=== PATIENT | female | born 1985 | race Two or more races ===

== ENCOUNTER 2016-03-31 05:32 | Inpatient (IN) | payer SELFPAY ==
[~2016-03-31] VITALS: Ht 149.9 cm; Wt 65.3 kg
[2016-03-31] VITALS (7 sets, daily range): BP systolic 87–103; BP diastolic 54–67
[2016-03-31] MEDS ORDERED: IV RINGERS,LACTATED 1000ML 1,000 ML IV SCH (06:00)
[2016-03-31] MEDS ORDERED: CEFAZOLIN 2GM PREMIX 50 ML IV ONE (06:00)
[2016-03-31] MEDS ORDERED: PREN-6 PO (06:35)
[2016-03-31 07:13] LABS: HEMATOCRIT 33.8 % (36.0-47.0); HEMOGLOBIN 11.2 g/dL (12.0-15.5); RED BLOOD COUNT 3.74 x10^6/uL (3.50-5.40); RED CELL DISTRIBUTION WIDTH 13.8 % (11.5-14.5); WHITE BLOOD COUNT 9.9 x10^3/uL (4.0-11.0)
[2016-03-31] MEDS ORDERED: CITRIC ACID/SODIUM CITRATE 30 ML SOLUTION. PO ONE (07:15)
[2016-03-31] MEDS ORDERED: FENTANYL PF 100 MCG/2 ML VIAL. ONE (07:23)
[2016-03-31] MEDS ORDERED: ONDANSETRON PF 4 MG/2 ML VIAL. ONE (07:23)
[2016-03-31] MEDS ORDERED: FAMOTIDINE 20 MG/2 ML VIAL ONE (07:23)
[2016-03-31] MEDS ORDERED: OXYTOCIN 10 UNIT/ML VIAL. ONE (07:24)
[2016-03-31] MEDS ORDERED: MORPHINE PF 5 MG/10 ML VIAL. ONE (07:24)
[2016-03-31] MEDS: IV RINGERS,LACTATED 1000ML 1,000 ML IV SCH ×3 (07:36→21:56)
[2016-03-31] MEDS ORDERED: PHENYLEPHRINE in 0.9% NACL PF 1 MG/10 ML DISP.SYRIN. IV ONE (08:42)
[2016-03-31] MEDS ORDERED: OXYTOCIN 30 UNIT/500 ML PREMIX 500 ML IV PRN (09:15)
[2016-03-31] MEDS ORDERED: DIPHENHYDRAMINE ORAL ELIXIR 12.5 MG/5 ML. PO PRN (09:15)
[2016-03-31] MEDS ORDERED: 0.9 % SODIUM CHLORIDE 10 ML DISP.SYRIN. IV PRN (09:15)
[2016-03-31] MEDS ORDERED: ZOLPIDEM 5 MG TABLET. PO PRN (09:15)
[2016-03-31] MEDS ORDERED: MAG HYDROX/AL HYDROX/SIMETH 30 ML ORAL.SUSP PO PRN (09:15)
[2016-03-31] MEDS ORDERED: MAGNESIUM HYDROXIDE 2,400 MG/30 ML ORAL.SUSP. PO PRN (09:15)
[2016-03-31] MEDS ORDERED: MMR per PROTOCOL. MC PRN (09:15)
[2016-03-31] MEDS ORDERED: SIMETHICONE 80 MG TAB.CHEW PO PRN (09:15)
[2016-03-31] MEDS ORDERED: ONDANSETRON PF 4 MG/2 ML VIAL. IV PRN (09:15)
--- NOTE | 2016-03-31 09:17 | PDOC ---
BRIEF OPERATIVE NOTE Pre-Op Diagnosis TIUP RLTC/S Post-Op Diagnosis Same Procedure Performed RLTC/S Surgeon Lulu Anesthesia Type: Regional Blood Loss 600cc Findings Female 5lbs Complications None NITO CARMONA MD Mar 31, 2016 09:17
[2016-03-31] MEDS: KETOROLAC TROMETHAMINE 30 MG/ML SYRINGE. IV PRN (14:48)
[2016-03-31] MEDS: CEFAZOLIN SODIUM 1 GM in IV NORMAL SALINE 50ML 50 ML IV SCH ×2 (14:52→23:24)
[2016-03-31] MEDS ORDERED: FERROUS SULFATE 325 MG TABLET PO SCH (17:00)
[2016-03-31] MEDS: IBUPROFEN 800 MG TABLET. PO SCH (22:00)
[2016-04-01 03:00] VITALS: BP 88/58
[2016-04-01 05:00] LABS: BASO % 0 % (0-3); EOS % 2 % (0-3); HEMATOCRIT 30.3 % (36.0-47.0); HEMOGLOBIN 10.1 g/dL (12.0-15.5); LYMPH # 1.8 x10^3/uL (1.0-4.8); LYMPH % 15 % (24-48); MEAN CORPUSCULAR HEMOGLOBIN 30 pg (25-35); MEAN CORPUSCULAR HGB CONC 33 g/dL (31-37); MEAN CORPUSCULAR VOLUME 89 fL (79-100); MONO % 7 % (0-9); NEUT % 76 % (31-73); PLATELET COUNT 185 x10^3/uL (140-400); RED BLOOD COUNT 3.38 x10^6/uL (3.50-5.40); RED CELL DISTRIBUTION WIDTH 13.9 % (11.5-14.5); WHITE BLOOD COUNT 11.8 x10^3/uL (4.0-11.0)
[2016-04-01] MEDS: KETOROLAC TROMETHAMINE 30 MG/ML SYRINGE. IV PRN (05:27)
[2016-04-01 05:53] VITALS: BP 90/56
[2016-04-01] MEDS: CEFAZOLIN SODIUM 1 GM in IV NORMAL SALINE 50ML 50 ML IV SCH (07:36)
[2016-04-01] MEDS: OXYCODONE/APAP 5/325 TABLET. PO PRN ×3 (10:17→18:41)
[2016-04-01] MEDS: IBUPROFEN 800 MG TABLET. PO SCH ×3 (10:17→18:40)
[2016-04-01 15:17] VITALS: BP 87/53
--- NOTE | 2016-04-01 17:49 | PDOC ---
Provider Note Provider Note Doing well VSS Dressing CDI FU in AM NITO CARMONA MD Apr 01, 2016 17:49
[2016-04-01 23:00] VITALS: BP 96/54
[2016-04-02] MEDS: IBUPROFEN 800 MG TABLET. PO SCH (04:40)
[2016-04-02] MEDS: DOCUSATE SODIUM 100 MG CAPSULE PO PRN (04:40)
[2016-04-02] MEDS: OXYCODONE/APAP 5/325 TABLET. PO PRN ×3 (04:40→22:50)
[2016-04-02 05:30] VITALS: BP 85/51
[2016-04-02 11:15] VITALS: BP 87/57
[2016-04-02 15:16] VITALS: BP 88/56
[2016-04-02 21:10] VITALS: BP 96/58
[2016-04-03 01:00] VITALS: BP 96/53
[2016-04-03] MEDS: OXYCODONE/APAP 5/325 TABLET. PO PRN ×2 (08:27→16:09)
[2016-04-03] MEDS: DOCUSATE SODIUM 100 MG CAPSULE PO PRN (08:28)
[2016-04-03 11:05] VITALS: BP 83/51
--- NOTE | 2016-04-03 14:31 | PDOC ---
Provider Note Provider Note Late entry 04/02/15 Doing well VSS Dressing CDI FU in AM NITO CARMONA MD Apr 03, 2016 14:31
--- NOTE | 2016-04-03 14:33 | PDOC3 ---
OB DISCHARGE SUMMARY DATE OF ADMISSION: 03/31/15 DATE OF DISCHARGE: 04/03/15 REASON FOR ADMISSION: section PROCEDURES: Ultrasound INTRAPARTUM PROCEDURES: :Low Cerv,Verti PROBLEM LIST AT DISCHARGE Problems Medical Problems: (1) Status: Acute DISCHARGE DIAGNOSIS: Term Delivered DISCHARGE INFORMATION: Activity, Diet HOSPITAL COURSE unremarkable CONDITION AT DISCHARGE Stable NITO CARMONA MD Apr 03, 2016 14:33
[2016-04-03] MEDS ORDERED: OXYC-323 PO (14:36)
[2016-04-03] MEDS ORDERED: NAPR500T3 PO (14:36)
[2016-04-03 16:10] VITALS: BP 94/58
== END 2016-04-03 16:20 | disposition home or self-care (01) | DRG 766 ==
LOC: 3 SO LND 05:32 → 3 NORTH 12:50
PROVIDERS: ADMIT Specialist; ATTEND Specialist
PROC: 10D00Z1 Extraction of Products of Conception, Low, Open Approach (ICD-10-PCS; principal; 2016-03-31)
DX: O80 Encounter for full-term uncomplicated delivery (principal); Z3A.39 39 weeks gestation of pregnancy; Z37.0 Single live birth
CPT/HCPCS: 36415; 85027; 86593; 86850; 86900; 86901; J0690; J1885; J2270; J2370; J2405; J2590; J3010; J7120; S0028